=== PATIENT | female | born 1945 | race Caucasian/White ===

== ENCOUNTER → 2021-07-08 10:40 | Outpatient (CLI) | payer MEDICARE, OTHER, SELFPAY ==
[2021-06-23 13:46] VITALS: BMI 25.2
--- NOTE | 2021-07-08 11:26 | ECHOD_ITS ---
Reason For Study: PHTN Procedure This was a 2D Doppler, Color Flow transthoracic echocardiogram. The exam was of adequate technical quality. Exam performed in department. Left Ventricle Normal LV size. Left ventricular systolic function is normal. The estimated ejection fraction is 65 %. Diastolic function is indeterminate. No regional wall motion abnormalities noted. Right Ventricle Normal RV size. Normal systolic function. Atria The left atrium is moderately enlarged. Normal right atrium. No doppler evidence for ASD. Bubble contrast study negative for right to left interatrial shunt. Mitral Valve There is moderate to severe mitral annular calcification. Extension the mitral annular calcification onto the base of the posterior mitral valve leaflet. Mild (1+) mitral valve insufficiency. Tricuspid Valve Normal tricuspid valve. Trivial tricuspid valve insufficiency. Right ventricular systolic pressure estimated to be 33 mmHg. Aortic Valve Trisinus/trileaflet aortic valve. Mild focal aortic valve calcification. Mild (1+) aortic valve insufficiency. Pulmonic Valve The pulmonic valve is not well visualized. Trivial pulmonic valve insufficiency. Great Vessels Normal sized aortic root. Pericardium/Pleural No pericardial effusion. Medication Performed a rapid injection of agitated mix of 9 cc saline and 1cc air to assess for atrial septal defect. MMode/2D Measurements & Calculations LVIDd: 4.1 cm IVSd: 1.1 cm Ao root diam: 3.3 cm LVIDs: 2.8 cm LVPWd: 0.98 cm RVDd: 1.8 cm FS: 32.9 % LAV(MOD-bp): 36.1 ml LVAd ap4: 18.5 cm2 SV(MOD-sp4): 27.2 ml LAV(MOD-bp) Indexed: 20.6 ml/m2 LVLd ap4: 6.1 cm LAV(MOD-sp2): 38.9 ml EDV(MOD-sp4): 45.9 ml LAV(MOD-sp4): 32.1 ml EDV(sp4-el): 47.5 ml LVAs ap4: 10.7 cm2 LVLs ap4: 5.3 cm ESV(MOD-sp4): 18.7 ml ESV(sp4-el): 18.3 ml EF(MOD-sp4): 59.3 % EF(sp4-el): 61.5 % SV(sp4-el): 29.2 ml LA A4 area: 14.1 cm2 LA dimension(2D): 4.1 cm RA A4 area: 5.6 cm2 Doppler Measurements & Calculations MV E max john: 60.4 cm/sec Lat Peak E' John: 4.7 cm/sec Med Peak E' John: 3.4 cm/sec MV A max john: 99.2 cm/sec E/E' lat: 12.8 E/E' med: 18.0 MV E/A: 0.61 Ao V2 max: 133.3 cm/sec AI max john: 444.8 cm/sec LV V1 max: 101.8 cm/sec Ao max P.1 mmHg AI max P.1 mmHg LV V1 max P.1 mmHg Ao V2 mean: 91.4 cm/sec Ao mean P.7 mmHg AI dec slope: 234.1 cm/sec2 Ao V2 VTI: 28.6 cm AI P1/2t: 556.6 msec PA V2 max: 93.4 cm/sec TR max john: 274.0 cm/sec TR max P.0 mmHg ECHO/Echo Complete Interpretation Summary Left ventricular systolic function is normal. The estimated ejection fraction is 65 %. The left atrium is moderately enlarged. There is moderate to severe mitral annular calcification. Extension the mitral annular calcification onto the base of the posterior travis l valve leaflet. Mild (1+) mitral valve insufficiency. Trivial tricuspid valve insufficiency. Mild focal aortic valve calcification. Mild (1+) aortic valve insufficiency. Trivial pulmonic valve insufficiency. Right ventricular systolic pressure estimated to be 33 mmHg. Diastolic function is indeterminate. Bubble contrast study negative for right to left interatrial shunt. Ordering Physician: Erasto Finn Referring Physician: Terry Jeff Performed By: Opal Haskins RDCS, RVT
--- NOTE | 2021-07-09 13:36 | PFT ---
INTRODUCTION: The patient is a 76-year-old female that presents for pulmonary function studies secondary to a diagnosis of pulmonary fibrosis. Respiratory therapy reported good patient effort. Bronchodilators were used during testing. INTERPRETATION: Forced expiration spirometry demonstrates no evidence of a large airways obstructive ventilatory defect. There was no significant response to aerosolized bronchodilators. Spirograms are of fair quality and plateau normally. Body plethysmography was performed and revealed a decreased TLC to 2.27 L, 48% of predicted, indicative of a severe restrictive ventilatory impairment. Diffusing capacity by single breath CO was severely reduced at 29% of predicted. IMPRESSION: Severe restrictive ventilatory impairment with symmetric reduction in diffusing capacity.
== END ==
PROVIDERS: PCP Family Medicine; Referring Provider Internal Medicine Critical Care Medicine; Visit Provider Internal Medicine Critical Care Medicine
DX: I27.20 Pulmonary hypertension, unspecified (principal); J84.10 Pulmonary fibrosis, unspecified; J96.11 Chronic respiratory failure with hypoxia; Z99.81 Dependence on supplemental oxygen
CPT/HCPCS: 93306; 94060; 94726; 94729; A4216

== ENCOUNTER → 2021-07-14 11:03 | Outpatient (CLI) | payer MEDICARE, OTHER, SELFPAY ==
[2021-06-23 13:46] VITALS: BMI 25.2
[2021-07-14 11:15] VITALS: PULSE 77; PULSE 81; PULSE 82; PULSE 85; PULSE 86; PULSE 87; O2SAT 83; O2SAT 86; O2SAT 87; O2SAT 89; O2SAT 90; O2SAT 92; O2SAT 94; O2SAT 97
--- NOTE | 2021-07-14 11:47 | CPS ---
Pt came to walk with pulse dose oxygen at 3lpm. Saturation was 83% at rest on 3 lpm pulse dose. Prior to start of walk pt was increased to 4 lpm pulse dose. Saturation was 95% at rest. At minute 3 of walk pt was increased to 5lpm pulse dose. Pt needed to be increased again at minute 4 to 6lpm pulse dose. Pt was able to remain on 6 lpm pulse dose. Post walk rest saturation on 6 lpm was 92%.
--- NOTE | 2021-07-14 14:19 | PCM.PSN.6M ---
PSN 6 Minute Walk Test 6 Minute Walk Test 6 Minute Walk Test: 6 Minute Walk Test PSN:6-Minute Walk Test Start: 07/14/21 11:40 Freq: Status: Active Protocol: [id number] Document 07/14/21 11:15 [facility] (Rec: 07/14/21 11:53 [facility] [id number]) 6 Minute Walk Test Date Performed 07/14/21 Time Performed 11:15 Height 5 ft 5 in Weight: 68.039 kg Weight in Pounds 150.[address]: Dr Finn Assistive device used: None Pre-test Oxygen Flow Rate (L/min) (L/min) 3 Oxygen Delivery Method Nasal Cannula Pulse Ox (%) 83 Pulse Rate (60-100 beats/min) 77 Dyspnea Dustin Scale (0-10) 2 Exertion Dustin Scale (6-20) 6 Reported Symptoms Increased Work of Breathing 1st minute Oxygen Flow Rate (L/min) (L/min) 4 Oxygen Delivery Method Nasal Cannula Pulse Ox (%) 90 Pulse Rate (60-100 beats/min) 85 2nd minute Oxygen Flow Rate (L/min) (L/min) 4 Oxygen Delivery Method Nasal Cannula Pulse Ox (%) 89 Pulse Rate (60-100 beats/min) 85 3rd minute Oxygen Flow Rate (L/min) (L/min) 4 Oxygen Delivery Method Nasal Cannula Pulse Ox (%) 87 Pulse Rate (60-100 beats/min) 87 Dyspnea Dustin Scale (0-10) 4 Reported Symptoms Increased Work of Breathing 4th minute Oxygen Flow Rate (L/min) (L/min) 5 Oxygen Delivery Method Nasal Cannula Pulse Ox (%) 86 Pulse Rate (60-100 beats/min) 86 Dyspnea Dustin Scale (0-10) 4 Reported Symptoms Increased Work of Breathing 5th minute Oxygen Flow Rate (L/min) (L/min) 6 Oxygen Delivery Method Nasal Cannula Pulse Ox (%) 97 Pulse Rate (60-100 beats/min) 82 6th minute Oxygen Flow Rate (L/min) (L/min) 6 Oxygen Delivery Method Nasal Cannula Pulse Ox (%) 94 Pulse Rate (60-100 beats/min) 85 Dyspnea Dustin Scale (0-10) 1 Exertion Dustin Scale (6-20) 11 Post-test Oxygen Flow Rate (L/min) (L/min) 6 Oxygen Delivery Method Nasal Cannula Pulse Ox (%) 92 Pulse Rate (60-100 beats/min) 81 Full Laps Walked 8 Partial Lap, Number of Tiles Walked 44 Total Distance Walked (ft) 516 07/14/21 11:47 [facility] Services by Oralia Mcneill Pt came to walk with pulse dose oxygen at 3lpm. Saturation was 83% at rest on 3 lpm pulse dose. Prior to start of walk pt was increased to 4 lpm pulse dose. Saturation was 95% at rest. At minute 3 of walk pt was increased to 5lpm pulse dose. Pt needed to be increased again at minute 4 to 6lpm pulse dose. Pt was able to remain on 6 lpm pulse dose. Post walk rest saturation on 6 lpm was 92%. Initialized on 07/14/21 11:47 - END OF NOTE Interpretation Interpretation: Patient was noted to be 83% at rest on 3 L pulse dose. The patient was increased to 4 L pulse dose with improvement to 95%. The patient eventually required 6 L pulse dose to maintain appropriate saturations throughout testing. In total, the patient traveled 516 feet over the course of 6 minutes with no assistive devices or significant tachycardia. These findings are consistent with a respiratory limitation exercise tolerance. Recommendations Recommendations: The patient requires 4 L pulse dose at rest, but should be up to 6 L pulse dose with any exertion.
== END ==
PROVIDERS: PCP Family Medicine; Referring Provider Internal Medicine Critical Care Medicine; Visit Provider Internal Medicine Critical Care Medicine
DX: J96.11 Chronic respiratory failure with hypoxia (principal); Z99.81 Dependence on supplemental oxygen; J84.10 Pulmonary fibrosis, unspecified
CPT/HCPCS: 94618

== ENCOUNTER → 2021-11-11 14:24 | Outpatient (CLI) | payer MEDICARE, OTHER, SELFPAY | PROVIDERS: PCP Family Medicine; Visit Provider Physician Assistant | DX: U07.1 COVID-19 (principal) | CPT/HCPCS: 87635; U0005; U0003 ==

== ENCOUNTER 2021-11-13 14:15 | Outpatient (CLI) | payer MEDICARE, OTHER, SELFPAY ==
[2021-11-13 14:36] VITALS: BP 172/80; PULSE 81; RESP 20; TEMP 36.8; O2SAT 95; BMI 24.7
[2021-11-13] MEDS: 0.9% Saline Lock 10 ML Syringe IV (14:47)
[2021-11-13 15:19] VITALS: BP 162/70; PULSE 68; RESP 16; TEMP 36.8; O2SAT 100
[2021-11-13 16:19] VITALS: BP 146/88; PULSE 72; RESP 18; TEMP 37.1; O2SAT 100
== END 2021-11-13 16:25 | disposition home or self-care (01) ==
LOC: MS3OUT 14:16 → MS3 14:16
PROVIDERS: PCP Family Medicine; Referring Provider Nurse Practitioner Adult Health; Visit Provider Nurse Practitioner Adult Health
DX: Z23 Encounter for immunization (principal); U07.1 COVID-19
CPT/HCPCS: J7050; M0245; Q0245; A4216

== ENCOUNTER → 2022-09-08 | Outpatient (CLI) | payer MEDICARE, OTHER, SELFPAY ==
--- NOTE | 2022-09-08 13:41 | RAD_ITS ---
STUDY: X-RAY CHEST REASON FOR EXAM: Female, 77 years old. ride side chest pain TECHNIQUE: XR Chest 2 Views COMPARISON: None FINDINGS: There is atherosclerotic calcification of the aortic arch with tortuosity. There are diffuse degenerative changes of the visualized thoracic spine. There is degenerative osteoarthritis of the bilateral shoulders. Possible overlying pulmonary fibrosis. There are bilateral infiltrates. Scoliosis of the thoracic and lumbar spine. Normal size heart. Normal mediastinum and filomena. Normal visualized pulmonary arteries. There is no demonstrated abnormality of the visualized soft tissue structures of the upper abdomen. RAD/Chest PA and Lateral IMPRESSION: Possible overlying pulmonary fibrosis. There are bilateral infiltrates. Electronically Signed: Bowen Will MD at 14:19 EDT ,
== END | disposition home or self-care (01) ==
LOC: RAD 13:38
PROVIDERS: PCP Family Medicine; Referring Provider Nurse Practitioner Acute Care; Visit Provider Nurse Practitioner Acute Care
DX: R07.9 Chest pain, unspecified (principal)
CPT/HCPCS: 71046